=== PATIENT | female | born 1955 | race Caucasian/White ===

== ENCOUNTER → 2018-03-15 | Outpatient (CLI) | payer OTHER ==
--- NOTE | 2018-03-15 16:40 | PCVCIMAG ---
APPROVED REPORT Study performed: 03/15/2018 14:52:47 EXAM: Comprehensive 2D, Doppler, and color-flow Echocardiogram Patient Location: Echo lab Status: routine BSA: 2.03 HR: 61 bpmBP: 140/80 mmHg Rhythm: NSR Other Information Study Quality: Good Risk Factors: Cardiac Risk Factors: DM Indications Cardiomyopathy AICD, LBBB, History of cardiac arrest 2D Dimensions IVSd: 10.59 (7-11mm)LVOT Diam: 20.87 (18-24mm) LVDd: 55.72 mm PWd: 9.16 (7-11mm)Ascending Ao: 27.44 (22-36mm) LVDs: 47.65 (25-40mm) Left Atrium: 28.17 (27-40mm) Aortic Root: 26.12 mm LV Single Plane 4CH: 43.07 % LV Single Plane 2CH: 54.68 % Biplane EF: 50.3 % Volumes Left Atrial Volume (Systole) Single Plane 4CH: 51.07 mLSingle Plane 2CH: 47.03 mL LA ESV Index: 27.00 mL/m2 Aortic Valve AoV Peak Roland.: 1.76 m/s AO Peak Gr.: 12.34 mmHgLVOT Max P.46 mmHg LVOT Max V: 1.06 m/s LANI Vmax: 2.05 cm2 Mitral Valve E/A Ratio: 0.9 MV Decel. Time: 299.77 ms MV E Max Roland.: 0.84 m/s MV A Roland.: 0.91 m/s TDI E/Lateral E': 6.46E/Medial E': 14.00 Medial E' Roland.: 0.06 m/s Lateral E' Roland.: 0.13 m/s Pulmonary Valve PV Peak Gr.: 3.70 mmHg Pulmonary Vein P Vein S: 0.62 m/sP Vein A: 0.35 m/s P Vein D: 0.53 m/sP Vein A Dur.: 107.3 msec P Vein S/D Ratio: 1.17 Tricuspid Valve TR Peak Roland.: 2.60 m/s TR Peak Gr.: 27.13 mmHg Left Ventricle The left ventricle is normal size. There is normal LV segmental wall motion. There is normal left ventricular wall thickness. Left ventricular systolic function is normal. The left ventricular ejection fraction is mildly reduced range. LVEF is 35-40% The left ventricular diastolic function is normal. Right Ventricle The right ventricle is normal size. The right ventricular systolic function is normal. Pacemaker lead is present in the right ventricle. Atria The left atrium size is normal. Pacemaker lead is present in the right atrium. Aortic Valve The aortic valve is normal in structure. Trace aortic regurgitation. There is no aortic valvular stenosis. Mitral Valve The mitral valve is normal in structure. Mild mitral regurgitation. No evidence of mitral valve stenosis. Tricuspid Valve The tricuspid valve is normal in structure. Trace to mild tricuspid regurgitation. Pulmonary artery pressure is 34mmHg. Pulmonic Valve The pulmonary valve is normal in structure. There is no pulmonic valvular regurgitation. Great Vessels The aortic root is normal in size. IVC is normal in size and collapses >50% with inspiration. Pericardium There is no pericardial effusion. <Conclusion> The left ventricle is normal size. LVEF is 35-40% The right ventricle is normal size. The left atrium size is normal. Trace aortic regurgitation. Mild mitral regurgitation. Trace to mild tricuspid regurgitation. Pulmonary artery pressure is 34mmHg. The aortic root is normal in size. There is no pericardial effusion.
== END | disposition home or self-care (01) ==
LOC: PCVCIMAG 15:01
PROVIDERS: ATTEND Internal Medicine Cardiovascular Disease
DX: I05.1 Rheumatic mitral insufficiency (principal); I42.9 Cardiomyopathy, unspecified; I44.7 Left bundle-branch block, unspecified; E11.9 Type 2 diabetes mellitus without complications
CPT/HCPCS: 93306